=== PATIENT | male | born 1950 ===

== ENCOUNTER 2021-03-07 07:39 | Day surgery (SDC) | payer MEDICARE ==
[2021-03-04 10:59] VITALS: BMI 25.8
[2021-03-07] MEDS ORDERED: AFRIN NASAL MIST 15 ML BOT ONE (09:05)
[2021-03-07] MEDS ORDERED: Scopolamine 1.5 mg/72 hour Patch ONE (09:19)
[2021-03-07] MEDS ORDERED: Oxymetazoline HCl 0.05% (30 ML BOT) ONE (09:59)
[2021-03-07] MEDS ORDERED: EPINEPHrine 1 MG/ML AMP ONE (09:59)
[2021-03-07] MEDS ORDERED: Xylocaine 1% w/ Epi 1:100K 10 ML VIAL ONE (09:59)
[2021-03-07] MEDS ORDERED: Bacitracin Zinc Ointment 30 gm TUBE ONE (09:59)
[2021-03-07] MEDS ORDERED: Famotidine/PF 20 mg/2ml Vial ONE ×2 (10:13→10:14)
[2021-03-07] MEDS ORDERED: Fentanyl 100 MCG/2 ML VIAL ONE (10:13)
[2021-03-07] MEDS ORDERED: Dexamethasone 20 MG/5 ML VIAL ONE (10:16)
[2021-03-07] MEDS ORDERED: ePHEDrine 50 MG/ML VIAL ONE (10:16)
[2021-03-07] MEDS ORDERED: Metoclopramide HCl 10 MG/2 ML VIAL ONE (10:16)
[2021-03-07] MEDS ORDERED: Albuterol Sulfate HFA (OR ONLY) ONE (10:16)
[2021-03-07] MEDS ORDERED: PROPOFOL 200 MG/20 ML VIAL ONE (10:16)
[2021-03-07] MEDS ORDERED: Lidocaine 1% PF 5 ML VIAL ONE (10:16)
[2021-03-07] MEDS ORDERED: Rocuronium Bromide 10 MG/ML (10ML VIAL) ONE (10:16)
[2021-03-07] MEDS ORDERED: Ondansetron PF 4 MG/2 ML Vial ONE (10:16)
[2021-03-07] MEDS ORDERED: Triamcinolone 40 MG/ML VIAL ONE (10:45)
== END 2021-03-07 13:30 | disposition home or self-care (01) ==
LOC: SDC 07:39
PROVIDERS: ATTEND Specialist
PROC: 09SM0ZZ Reposition Nasal Septum, Open Approach (ICD-10-PCS; principal; 2021-03-07)
PROC: 8E09XBZ Computer Assisted Procedure of Head and Neck Region (ICD-10-PCS; 2021-03-07)
PROC: 09TL8ZZ Resection of Nasal Turbinate, Via Natural or Artificial Opening Endoscopic (ICD-10-PCS; 2021-03-07)
PROC: 099T8ZZ Drainage of Left Frontal Sinus, Via Natural or Artificial Opening Endoscopic (ICD-10-PCS; 2021-03-07)
PROC: 099W8ZZ Drainage of Right Sphenoid Sinus, Via Natural or Artificial Opening Endoscopic (ICD-10-PCS; 2021-03-07)
PROC: 099X8ZZ Drainage of Left Sphenoid Sinus, Via Natural or Artificial Opening Endoscopic (ICD-10-PCS; 2021-03-07)
PROC: 099S8ZZ Drainage of Right Frontal Sinus, Via Natural or Artificial Opening Endoscopic (ICD-10-PCS; 2021-03-07)
PROC: 09BR8ZZ Excision of Left Maxillary Sinus, Via Natural or Artificial Opening Endoscopic (ICD-10-PCS; 2021-03-07)
PROC: 09BQ8ZZ Excision of Right Maxillary Sinus, Via Natural or Artificial Opening Endoscopic (ICD-10-PCS; 2021-03-07)
PROC: 09TV8ZZ Resection of Left Ethmoid Sinus, Via Natural or Artificial Opening Endoscopic (ICD-10-PCS; 2021-03-07)
PROC: 09TU8ZZ Resection of Right Ethmoid Sinus, Via Natural or Artificial Opening Endoscopic (ICD-10-PCS; 2021-03-07)
DX: J32.9 Chronic sinusitis, unspecified (principal); J34.2 Deviated nasal septum; J34.3 Hypertrophy of nasal turbinates; J34.89 Other specified disorders of nose and nasal sinuses; J31.0 Chronic rhinitis; Z79.899 Other long term (current) drug therapy; Z87.820 Personal history of traumatic brain injury
CPT/HCPCS: 93005; 93010; J0171; J1100; J2405; J2704; J2765; J3010; J3301; J3490; S0028